=== PATIENT | male | born 1995 | race African-American/Black ===

== ENCOUNTER 2019-07-11 01:24 | Emergency (ER) | payer SELFPAY ==
[~2019-07-11] VITALS: Ht 172.7 cm; Wt 73.0 kg
[2019-07-11 01:30] VITALS: BP 123/85
== END 2019-07-11 03:19 | disposition left against medical advice (07) ==
LOC: ER 02:25
DX: Z53.21 Procedure and treatment not carried out due to patient leaving prior to being seen by health care provider (principal); J45.909 Unspecified asthma, uncomplicated